=== PATIENT | female | born 1960 | race Caucasian/White ===

== ENCOUNTER 2021-02-21 05:07 | Emergency (ER) | payer OTHER ==
[~2021-02-21] VITALS: Ht 157.5 cm; Wt 64.0 kg
[2021-02-21] MEDS ORDERED: HYDROCODONE/ACETAMINOPHEN 5/325MG TABLET PO ONE (05:45)
[2021-02-21] MEDS ORDERED: TETANUS, DIPHTHERIA, PERTUSSIS VAC/PF 0.5ML (>10YR OLD) IM ONE (05:45)
[2021-02-21 05:56] VITALS: BP 174/59
[2021-02-21] MEDS ORDERED: LIDOCAINE HCL/PF 1% 10 MG/ML 5ML VIAL INFIL ONE (06:00)
[2021-02-21] MEDS ORDERED: LIDOCAINE HCL 1% 20ML VIAL (Pyxis) INJ INFIL NR (06:00)
[2021-02-21] MEDS ORDERED: TOPUD PO (06:51)
[2021-02-21] MEDS ORDERED: SULF1TAB48 PO (06:54)
[2021-02-21] MEDS ORDERED: CEPH500C2 PO (06:54)
== END 2021-02-21 07:32 | disposition home or self-care (01) ==
LOC: ER 05:55
DX: S62.635B Displaced fracture of distal phalanx of left ring finger, initial encounter for open fracture (principal); W23.0XXA Caught, crushed, jammed, or pinched between moving objects, initial encounter; Y93.89 Activity, other specified; Y92.89 Other specified places as the place of occurrence of the external cause
CPT/HCPCS: 12001; 73140; 90471; 90715; 99283; J3490

== ENCOUNTER 2021-11-29 12:02 | Emergency (ER) | payer SELFPAY ==
[~2021-11-29] VITALS: Ht 160 cm; Wt 75.0 kg
[~2021-11-29 12:02] MED LIST: CEPH500C2 PO; SULF1TAB48 PO; TOPUD PO
[2021-11-29] MEDS ORDERED: KETOROLAC 60MG/2ML VIAL IM ONE (15:30)
[2021-11-29] MEDS ORDERED: ACETAMINOPHEN 325MG TABLET PO ONE (15:30)
[2021-11-29 16:03] VITALS: BP 161/62
[2021-11-29] MEDS ORDERED: LIDO1ADH23 TP (18:00)
[2021-11-29] MEDS ORDERED: TOPUD PO (18:00)
[2021-11-29] MEDS ORDERED: IBUP-2028 MT (18:00)
== END 2021-11-29 18:48 | disposition home or self-care (01) ==
LOC: ER 12:02
DX: M25.562 Pain in left knee (principal); M25.462 Effusion, left knee; I10 Essential (primary) hypertension; X58.XXXA Exposure to other specified factors, initial encounter; Y93.89 Activity, other specified; Y92.89 Other specified places as the place of occurrence of the external cause; Y99.8 Other external cause status
CPT/HCPCS: 73562; 93971; 96372; 99284; J1885